=== PATIENT | male | born 2000 | race Caucasian/White ===

== ENCOUNTER 2019-02-02 00:50 | Emergency (ER) | payer SELFPAY ==
--- NOTE | 2019-02-02 01:28 | EKG ---
[place] [facility] [place] NAME: NEHA RAMOS : [id number] MR: [id number] V: [id number] EXAM DATE: ORDERING PHYSICIAN: ULISES MEYERS TECHNOLOGIST: AMPARO Test Reason : CARDIAC Blood Pressure : / mmHG Vent. Rate : 086 BPM Atrial Rate : 086 BPM P-R Int : 150 ms QRS Dur : 096 ms QT Int : 368 ms P-R-T Axes : 064 052 044 degrees QTc Int : 440 ms Normal sinus rhythm Normal ECG No previous ECGs available Confirmed by Enmanuel Salinas ([id number]) on 02/02/2019 6:58:28 AM Referred By: Confirmed By:Enmanuel Ceja
[2019-02-02] MEDS ORDERED: ACETAMINOPHEN 325 MG TAB PO ONE (01:30)
--- NOTE | 2019-02-02 01:30 | ER Report ---
History and Physical Time Seen By MD: 01:10 Hx. of Stated Complaint: PT STATES HE FELT SOMETHING WHILE LIFTING YESTERDAY. HAS HAD CHEST PAIN EVER SINCE. TONIGHT IT'S GOTTEN WORSE HPI/ROS CHIEF COMPLAINT: Chest pain HISTORY OF PRESENT ILLNESS: 18-year-old male has had chest pain ongoing since yesterday afternoon. He states that he lifted weights yesterday late morning and did not note injury. His pain began while at rest history afternoon, is left- sided, feels like a pressure, is severe, nonradiating, has never happened before. Patient worked out this morning and noted that it was worse while he was running, those specifically stated he was worse while swinging his arm. He did not feel it was associated with exertion. He does not have shortness of breath but has pain when he takes a deep breath. There are no other clear associations to the pain. He has no pain or swelling in his legs. He has no history of DVT. There is no family history of DVT or PE. He has no recent travel. There is no family history of cardiac disease young age. He denies tobacco, cocaine, or other drugs or supplements. He has not had any recent illness. He has no nausea or vomiting. REVIEW OF SYSTEMS: Constitutional: No fever, no chills. Eyes: No discharge. ENT: No sore throat. Cardiovascular: above Respiratory: No cough, no shortness of breath. Gastrointestinal: No abdominal pain, no vomiting. Genitourinary: no dysuria Musculoskeletal: No back pain. Skin: No rashes. Neurological: No headache. Remainder of the 14 system rev: Yes Allergies: Coded Allergies: No Known Drug Allergies (Unverified , 02/02/19) Home Meds No Active Prescriptions or Reported Meds Reviewed Nurses Notes: Yes Hx Substance Use Disorder: No Hx Alcohol Use: No Constitutional Vital Sign - Last 24 Hours 02/02/19 02/02/19 02/02/19 02/02/19 00:50 00:51 00:53 00:55 Temp 97.4 Pulse ??? 93 Resp 18 B/P (MAP) 129/104 (112) 129/104 129/88 (102) O2 Delivery Room Air 02/02/19 02/02/19 02/02/19 02/02/19 01:00 01:20 01:36 01:50 Pulse 88 81 Resp 19 26 B/P (MAP) 121/87 (98) 111/75 (87) Pulse Ox 93 93 02/02/19 02/02/19 02/02/19 02:00 02:20 02:30 Pulse 84 Resp 21 B/P (MAP) 106/78 (87) 111/82 (92) Pulse Ox 93 Intake and Output 02/01/19 02/01/19 02/02/19 15:02 23:02 07:02 Intake Total 1000 ml Balance 1000 ml Physical Exam General Appearance: The patient is alert, has no immediate need for airway protection and no signs of toxicity. [ ] Eyes: Pupils equal and round no pallor or injection. ENT, Mouth: Mucous membranes are moist. Respiratory: There are no retractions, lungs are clear to auscultation. Cardiovascular: Regular rate and rhythm. no m/r/g chest wall; ttp left pectoralis muscle, joey at origin at medial chest wall Gastrointestinal: Abdomen is soft and non tender, no masses, bowel sounds normal. Neurological: alert, no gross deficits Skin: Warm and dry, no rashes. Musculoskeletal: Neck is supple non tender. Extremities are nontender, nonswollen and have full range of motion. DIFFERENTIAL DIAGNOSIS: After history and physical exam differential diagnosis was considered for chest pain including but not limited to myocardial ischemia, pericarditis pulmonary embolus, chest wall pain, pleural inflammation and pulmon tj infectious causes.shortness of breath including but not limited to pulmonary infectious process, COPD, asthma, pulmonary embolus and congestive heart failure. Medical Decision Making Data Points Result Diagram: 02/02/19 0056 02/02/19 0056 Laboratory Hematology Test 02/02/19 00:56 Red Blood Count 5.72 M/uL (4.00-5.60) Mean Corpuscular Volume 91.3 fL (80.0-96.0) Mean Corpuscular Hemoglobin 32.8 pg (26.0-33.0) Mean Corpuscular Hemoglobin Concent 35.9 g/dL (32.0-36.0) Red Cell Distribution Width 12.8 % (11.5-14.5) Mean Platelet Volume 9.0 fL (7.2-11.1) Neutrophils (%) (Auto) 54.2 % (39.4-72.5) Lymphocytes (%) (Auto) 35.3 % (17.6-49.6) Monocytes (%) (Auto) 8.3 % (4.1-12.4) Eosinophils (%) (Auto) 1.6 % (0.4-6.7) Basophils (%) (Auto) 0.6 % (0.3-1.4) Nucleated RBC Relative Count (auto) 0.1 /100WBC Neutrophils # (Auto) 4.7 K/uL (2.0-7.4) Lymphocytes # (Auto) 3.0 K/uL (1.3-3.6) Monocytes # (Auto) 0.7 K/uL (0.3-1.0) Eosinophils # (Auto) 0.1 K/uL (0.0-0.5) Basophils # (Auto) 0.1 K/uL (0.0-0.1) Nucleated RBC Absolute Count (auto) 0.01 K/uL D-Dimer Quantitative (PE/DVT) < 0.27 ug/ml (0-0.50) Sodium Level 142 mmol/L (137-145) Potassium Level 4.2 mmol/L (3.5-5.0) Chloride Level 104 mmol/L (98-107) Carbon Dioxide Level 26 mmol/L (22-30) Blood Urea Nitrogen 21 mg/dl (9-21) Creatinine 1.30 mg/dl (0.66-1.25) Glomerular Filtration Rate Calc > 60.0 Random Glucose 96 mg/dl (75-110) Calcium Level 9.2 mg/dl (8.4-10.2) Total Creatine Kinase 405 U/L (55-170) Troponin I < 0.012 ng/ml Chemistry Test 02/02/19 00:56 White Blood Count 8.6 k/uL (4.5-11.0) Red Blood Count 5.72 M/uL (4.00-5.60) Hemoglobin 18.7 g/dL (14.0-18.0) Hematocrit 52.2 % (42.0-52.0) Mean Corpuscular Volume 91.3 fL (80.0-96.0) Mean Corpuscular Hemoglobin 32.8 pg (26.0-33.0) Mean Corpuscular Hemoglobin Concent 35.9 g/dL (32.0-36.0) Red Cell Distribution Width 12.8 % (11.5-14.5) Platelet Count 211 K/uL (150-450) Mean Platelet Volume 9.0 fL (7.2-11.1) Neutrophils (%) (Auto) 54.2 % (39.4-72.5) Lymphocytes (%) (Auto) 35.3 % (17.6-49.6) Monocytes (%) (Auto) 8.3 % (4.1-12.4) Eosinophils (%) (Auto) 1.6 % (0.4-6.7) Basophils (%) (Auto) 0.6 % (0.3-1.4) Nucleated RBC Relative Count (auto) 0.1 /100WBC Neutrophils # (Auto) 4.7 K/uL (2.0-7.4) Lymphocytes # (Auto) 3.0 K/uL (1.3-3.6) Monocytes # (Auto) 0.7 K/uL (0.3-1.0) Eosinophils # (Auto) 0.1 K/uL (0.0-0.5) Basophils # (Auto) 0.1 K/uL (0.0-0.1) Nucleated RBC Absolute Count (auto) 0.01 K/uL D-Dimer Quantitative (PE/DVT) < 0.27 ug/ml (0-0.50) Glomerular Filtration Rate Calc > 60.0 Calcium Level 9.2 mg/dl (8.4-10.2) Total Creatine Kinase 405 U/L (55-170) Troponin I < 0.012 ng/ml Coagulation Test 02/02/19 00:56 D-Dimer Quantitative (PE/DVT) < 0.27 ug/ml EKG/Imaging EKG Interpretation 12 lead EKG: Rhythm: Normal sinus rhythm [place]: Normal QRS: Normal ST segments: Normal Monitor Interpretation: Normal Sinus Rhythm ED Course/Re-evaluation ED Course 18 m presents with l pectoral chest pain; given severity of pain, multiple underlying etiologies evaluated, however pt does not appear to have cardiopulmonary cause. He has had significant workout program for [employer] and does have e/o mild dehydration and elevated ck without rhabdo criteria. Does not have e/o compartment syndrome. He does have ttp pectoral m's; recommend rest, hydration, re-evaluation by sports medicine trainer, ice, tylenol > nsaids, and SRP's. Pt understands. Decision to Disposition Date: Feb 02, 2019 Decision to Disposition Time: 02:32 Depart Departure Latest Vital Signs Vital Signs Date Time Temp Pulse Resp B/P (MAP) Pulse Ox O2 Delivery O2 Flow Rate FiO2 02/02/19 02:30 111/82 (92) 02/02/19 02:20 84 21 93 02/02/19 00:53 97.4 Room Air Impression: Primary Impression: Muscle pain Additional Impressions: Elevated CK Renal insufficiency Dehydration Condition: Improved Disposition: HOME OR SELF-CARE New Scripts No Active Prescriptions or Reported Meds Patient Instructions: Dehydration (ED) Additional Instructions: You have signs of dehydration with some mild organ dysfunction (elevated kidney level (creatinine 1.4), elevated muscle creatinine > 400, and concentrated hemoglobin/hematocrit. Drink approximately twice as much fluid as you have been; I recommend reassessment by sports medicine trainer prior to return to lifting/contact activity. Please return if feeling worse or for any concerns. Problem Qualifiers ULISES MEYERS MD Feb 02, 2019 01:29
[2019-02-02 01:38] LABS: PLATELET COUNT, AUTOMATED 211 K/uL (150-450)
--- NOTE | 2019-02-02 01:54 | RADIOLOGY IMAGING REPORT ---
FACILITY: [facility] PATIENT NAME: Tad Ramirez : 2000 MR: [id number] V: [id number] EXAM DATE: ORDERING PHYSICIAN: ULISES MEYERS TECHNOLOGIST: Location: [facility] - [place], [place] Patient: Tad Ramirez : 2000 Visit/Account:[id number] Date of Sevice: 02/02/2019 CHEST: Indication: Chest pain. Technique: Frontal and lateral views were obtained. Comparison: None available. Skeletal and soft tissue structures: Intact and unremarkable. Heart and mediastinum: Within normal limits. Lung king: Well-expanded and clear. Pleural spaces: Unremarkable. Impression: No acute process. Report Dictated By: Sergey Gastelum MD at 02/02/2019 1:45 AM Report E-Signed By: Sergey Gastelum MD at 02/02/2019 1:47 AM [id number]
[2019-02-02] MEDS ORDERED: NS(*) 0.9% 1000 ML BAG 1,000 ML IV ONE (02:00)
[2019-02-02 02:30] VITALS: BP 111/82
[2019-02-02] MEDS ORDERED: CYCLOBENZAPRINE HCL 10 MG TH PO ONE (02:40)
== END 2019-02-02 02:46 | disposition home or self-care (01) ==
LOC: ER 01:40
DX: R07.89 Other chest pain (principal); R74.8 Abnormal levels of other serum enzymes; N28.9 Disorder of kidney and ureter, unspecified; E86.0 Dehydration
CPT/HCPCS: 71046; 82550; 84484; 85025; 85379; 93005; 96360; 99283; J7030; 82310; 82374; 82435; 82565; 82947; 84132; 84295; 84520